=== PATIENT | female | born 1975 | race Two or more races ===

== ENCOUNTER 2017-01-25 13:23 | Emergency (ER) | payer OTHER ==
[~2017-01-25] VITALS: Ht 170.2 cm; Wt 89.5 kg
[~2017-01-25 13:23] MED LIST: ADULT LOW DOSE81 M1 PO; AMARYL2 MG PO; AMBIEN10 MG PO; AMBIEN5 MG PO; AUGMENTIN875 MG PO; Ambien PO; BUPROPION XL300 MG PO; BUSPAR15 MG PO; CIPRO500 MG PO; CLONAZEPAM1 MG PO; DEPAKOTE ER500 MG PO; DEPAKOTE500 MG PO; DESYREL 150 MG150 MG PO; DESYREL100 MG PO; EXCEDRIN MIGRA1 EAC1 PO; FLEXERIL10 MG PO; HYDROCODON-ACE1 EAC7 PO; IBUPROFEN600 MG PO; JANUMET 50/51 TABLET PO; KLONOPIN1 MG PO; LATUDA120 MG PO; LATUDA40 MG PO; LISINOPRIL40 MG PO; LORAZEPAM1 MG PO; MOTRIN800 MG PO; NAPROSYN500 MG PO; NASONEX17 GM BOTH NARES; OLEPTRO ER150 MG PO; OSTEO BI-FLEX1 EAC2 PO; PANTOPRAZOLE SO40 MG PO; PEN-VEE K,VEET500 MG PO; PERCOCET 5/31 TABLET PO; PRAVACHOL40 MG PO; PREDNISONE20 MG PO; PRINIVIL5 MG PO; PYRIDIUM100 MG PO; RESTORIL15 MG PO; SEROQUEL XR300 MG PO; SEROQUEL100 MG PO; SEROQUEL200 MG PO; SONATA10 MG PO; TRAZODONE HCL150 MG PO; TRAZODONE HCL300 MG PO; ULTRAM50 MG PO; VITAMIN D250000 UNIT PO; VITAMIN D32000 UNIT PO; WELLBUTRIN SR150 MG PO
[2017-01-25 14:45] LABS: HEMATOCRIT 39.4 % (36.0-46.0); MCH 33.3 PG (29.0-34.0); MCV 94.9 FL (83-99); MEAN PLAT.VOLUME 9.3 uM^3 (9.5-12.4); PLATELET COUNT 158 K/uL (156-360); RBC DIS.WIDTH-CV 14.1 % (11.8-14.6); RBC DIS.WIDTH-SD 45.2 % (39-53); RED BLOOD COUNT 4.15 M/uL (3.80-5.20)
[2017-01-25 14:54] LABS: CHLORIDE 108 mEq/L (99-109); POTASSIUM 2.9 mEq/L (3.7-5.4); SODIUM 144 mEq/L (136-147)
[2017-01-25 14:56] LABS: GLUCOSE 71 mg/dL (70-99)
[2017-01-25 14:57] LABS: ANION GAP 13 MEQ/L (2-14)
[2017-01-25 14:58] LABS: TOTAL BILIRUBIN 0.3 mg/dL (0.0-1.0)
[2017-01-25 14:59] LABS: SERUM ETHYL ALCOHOL 65 mg/dL
[2017-01-25 15:00] LABS: ALKALINE PHOSPHATASE 44 IU/L (3-129); GFR ESTIMATE (CALCULATED) > 59 mL/min/
[2017-01-25 15:01] LABS: UREA NITROGEN (BUN) 6 mg/dL (9-23)
[2017-01-25 15:03] LABS: CREATINE KINASE 169 IU/L (1-294); TOTAL CK 169 IU/L (1-294)
[2017-01-25 15:09] LABS: CK-MB 1.2 ng/mL (0.0-4.9)
[2017-01-25 17:49] LABS: CHLORIDE 108 mEq/L (99-109); POTASSIUM 2.8 mEq/L (3.7-5.4); SODIUM 143 mEq/L (136-147)
[2017-01-25 17:52] LABS: ANION GAP 12 MEQ/L (2-14)
[2017-01-25 17:54] LABS: GFR ESTIMATE (CALCULATED) > 59 mL/min/
[2017-01-25 17:55] LABS: UREA NITROGEN (BUN) 6 mg/dL (9-23)
[2017-01-25 17:57] LABS: GLUCOSE 89 mg/dL (70-99)
[2017-01-25 18:24] LABS: INTERNAL CONTROL VALID? YES
[2017-01-25 18:26] LABS: ADD MIUA? NO; BILIRUBIN NEGATIVE; BLOOD NEGATIVE; COLOR YELLOW ((YELLOW)); GLUCOSE (STRIP) NEGATIVE; KETONES 5; LEUKOCYTES NEGATIVE; NITRITE NEGATIVE; PROTEIN (STRIP) NEGATIVE; SPECIFIC GRAVITY 1.011 (1.000-1.030); UCUL ADDED? NO
[2017-01-25 18:45] LABS: ADD MEDTOX COMMENT Y; AMPHETAMINE NEGATIVE (500 ng/mL); BARBITURATES NEGATIVE (200 ng/mL); BENZODIAZEPINES PRESUMPTIVE POSITIVE (150 ng/mL); COCAINE NEGATIVE (150 ng/mL); INTERNAL CONTROLS VALID? YES; METHADONE NEGATIVE (200 ng/mL); METHAMPHETAMINE NEGATIVE (500 ng/mL); OPIATES (MORPHINE) NEGATIVE (100 ng/mL); OXYCODONE NEGATIVE (100 ng/mL); PHENCYCLIDINE NEGATIVE (25 ng/mL); PROPOXYPHENE NEGATIVE (300 ng/mL); THC CANNABINOIDS NEGATIVE (50 ng/mL); TRICYCLIC ANTIDEPRESSANTS NEGATIVE (300 ng/mL)
[2017-01-25 19:14] LABS: BENZODIAZEPINES QUANT VALUE 0 NG/ML; BENZODIAZEPINES, URINE SCREEN Negative (200 ng/mL)
[2017-01-25 22:17] VITALS: BP 128/85
== END 2017-01-25 22:18 | disposition home or self-care (01) ==
LOC: EME 13:23
PROVIDERS: Emergency Medicine
DX: F32.9 Major depressive disorder, single episode, unspecified (principal); F10.129 Alcohol abuse with intoxication, unspecified; Y90.3 Blood alcohol level of 60-79 mg/100 ml; F13.10 Sedative, hypnotic or anxiolytic abuse, uncomplicated; I10 Essential (primary) hypertension; E11.9 Type 2 diabetes mellitus without complications; I25.2 Old myocardial infarction; F41.9 Anxiety disorder, unspecified; F17.200 Nicotine dependence, unspecified, uncomplicated; Z98.84 Bariatric surgery status; Z88.8 Allergy status to other drugs, medicaments and biological substances
CPT/HCPCS: 70450; 80048 91; 80053; 81003; 82550; 82553; 84703; 84999; 85027; 90839; 93005; 99281; 99285; G0480

== ENCOUNTER 2017-08-05 16:21 | Emergency (ER) | payer OTHER ==
[~2017-08-05] VITALS: Ht 167.6 cm; Wt 84.1 kg
[2017-08-05] MEDS ORDERED: LIDODERM 5% P1 PATCH TD (16:50)
[2017-08-05] MEDS ORDERED: MEDROL DOSEPAK4 MG PO (16:50)
[2017-08-05] MEDS ORDERED: FLEXERIL10 MG PO (16:50)
[2017-08-05 17:25] VITALS: BP 153/83
== END 2017-08-05 17:28 | disposition home or self-care (01) ==
LOC: EME 16:21
DX: M54.16 Radiculopathy, lumbar region (principal); G89.29 Other chronic pain; Z98.84 Bariatric surgery status; Z88.8 Allergy status to other drugs, medicaments and biological substances
CPT/HCPCS: 99281; 99283; J1100